=== PATIENT | male | born 1960 | race Caucasian/White ===

== ENCOUNTER 2017-05-30 15:12 | Emergency (ER) | payer BC ==
[~2017-05-30] VITALS: Ht 172.7 cm; Wt 86.5 kg
[2017-05-30] MEDS ORDERED: PERCOCET 5/31 TABLET PO (16:57)
[2017-05-30 17:17] VITALS: BP 125/89
== END 2017-05-30 17:18 | disposition home or self-care (01) ==
LOC: EME 15:12
DX: M54.5 Low back pain (principal); M16.0 Bilateral primary osteoarthritis of hip
CPT/HCPCS: 72100; 73502; 99281; 99283